=== PATIENT | female | born 1945 | race Caucasian/White ===

== ENCOUNTER 2018-04-09 10:18 | Outpatient (CLI) | payer MEDICARE, SELFPAY ==
[2018-04-09 11:19] LABS: ALT 32 U/L (12-78); AST 34 U/L (15-37); Cholesterol 254 mg/dL (50-200); HDL Cholesterol 51 mg/dL (40-60); LDL CHOLESTEROL 177 mg/dL (<100); Triglyceride 136 mg/dL (30-150)
== END 2018-04-09 10:38 ==
PROVIDERS: PCP Internal Medicine; Visit Provider Internal Medicine
DX: E78.5 Hyperlipidemia, unspecified (principal)
CPT/HCPCS: 36415; 80061; 83721; 84450; 84460

== ENCOUNTER 2018-11-14 07:48 | Outpatient (CLI) | payer MEDICARE, SELFPAY ==
[2018-11-14 10:12] LABS: ALT 23 U/L (12-78); AST 19 U/L (15-37); Albumin 3.5 g/dL (3.4-5.0); Alkaline Phosphatase 56 U/L (46-116); Bilirubin, Total 0.8 mg/dL (0.2-1.0); Cholesterol 164 mg/dL (50-200); HDL Cholesterol 43 mg/dL (40-60); LDL CHOLESTEROL 93 mg/dL (<100); Total Protein 7.3 g/dL (6.4-8.2); Triglyceride 108 mg/dL (30-150)
[2018-11-14 10:24] LABS: Bilirubin, Direct 0.16 mg/dL (0.00-0.20)
== END 2018-11-14 08:08 ==
PROVIDERS: PCP Internal Medicine; Visit Provider Internal Medicine
DX: E78.5 Hyperlipidemia, unspecified (principal)
CPT/HCPCS: 36415; 80061; 80076; 83721

== ENCOUNTER 2018-12-02 01:23 | Outpatient (CLI) | payer MEDICARE, SELFPAY ==
--- NOTE | 2018-12-02 10:59 | DI.MAMMO_ITS ---
SYMPTOM/DIAGNOSIS: SCREENING Z12.39, PREVENTIVE HEALTH Z00.00 MAMMOGRAMS: Mammograms were interpreted according to the usual protocol including computer analysis with CAD system, tomosynthesis and C view imaging. Comparison with prior examinations. Breast density A. No suspicious masses or microcalcifications are seen. There is asymmetric breast tissue in the retroareolar region of the right breast on the medial lateral oblique view which is more prominent compared to the prior examination. Spot compression views requested. Ultrasound may be indicated at that time. There is an asymmetric density in the medial right breast on the cranial caudad view. This should be further evaluated with spot compression viw. IMPRESSION: Additional views of the right breast as described above. Category 0, breast density A. MQSA ASSESSMENT OF FINDINGS: Incomplete: Needs additional imaging evaluation. Category 0. Patient will receive a letter notifying them of these results. BI-RAD category A. The breasts are almost entirely fatty..
== END 2018-12-02 01:43 ==
PROVIDERS: PCP Internal Medicine; Visit Provider Internal Medicine
DX: Z12.31 Encounter for screening mammogram for malignant neoplasm of breast (principal); R92.8 Other abnormal and inconclusive findings on diagnostic imaging of breast
CPT/HCPCS: 77063; 77067

== ENCOUNTER 2018-12-19 01:04 | Outpatient (CLI) | payer MEDICARE, SELFPAY ==
--- NOTE | 2018-12-19 10:49 | DI.MAMMO_ITS ---
SYMPTOM/DIAGNOSIS: F/U ABNL MAMMO, ASYMMETRIC BREAST TISSUE ADDITIONAL MAMMOGRAPHIC VIEWS RIGHT BREAST, RIGHT BREAST ULTRASOUND: 12/19 Additional images are interpreted according to the usual protocol including tomosynthesis and 2D imaging. Additional mammographic views of the right breast and right breast ultrasound are interpreted in conjunction. These examinations were obtained to evaluate a questionable area of asymmetric density/nodularity of the retroareolar portion of the right breast seen on recent mammogram in the MLO view. Additional mammographic views failed to show a discrete mass. Breast ultrasound shows no evidence of a mass or cyst. CONCLUSION: No specific evidence of malignancy at this time. Follow up unilateral right breast mammogram recommended in six months. Category 3, breast density category B. MQSA ASSESSMENT OF FINDINGS: Probably benign. Six month follow-up recommended. Category 3. Patient will receive a letter notifying them of these results. BI-RADS category B. There are scattered areas of fibroglandular density.
== END 2018-12-19 01:24 ==
PROVIDERS: PCP Internal Medicine; Visit Provider Internal Medicine
DX: Z12.31 Encounter for screening mammogram for malignant neoplasm of breast (principal); R92.8 Other abnormal and inconclusive findings on diagnostic imaging of breast; N64.59 Other signs and symptoms in breast
CPT/HCPCS: 76642; 77063; 77067

== ENCOUNTER → 2019-01-17 10:39 | Outpatient (BNVA) | payer MEDICARE, SELFPAY | PROVIDERS: PCP Internal Medicine; Referring Provider Internal Medicine; Visit Provider Physical Therapy Assistant | DX: Z12.11 Encounter for screening for malignant neoplasm of colon (principal); Z86.010 Personal history of colon polyps; I10 Essential (primary) hypertension ==

== ENCOUNTER → 2019-03-27 10:52 | Outpatient (BNVA) | payer MEDICARE, SELFPAY | PROVIDERS: PCP Internal Medicine; Referring Provider Internal Medicine; Visit Provider Physical Therapy Assistant | DX: Z12.11 Encounter for screening for malignant neoplasm of colon (principal); Z86.010 Personal history of colon polyps; I10 Essential (primary) hypertension ==

== ENCOUNTER 2019-04-07 08:09 | Day surgery (SDC) | payer MEDICARE, SELFPAY ==
--- NOTE | 2019-04-07 06:48 | W.COLOREPORT ---
Date of service: 04/07/19 Time of Service: Colonoscopy Report Date of procedure: 04/07/19 Pre-op diagnosis general: Hx of polyps, screening colonoscopy Post-op diagnosis procedure note: same (polyps and diverticulosis) Procedure: Colonoscopy with polypectomy by hot snare and cold forceps Surgeon: Brittany Srinivasan Anesthesia proc note operative: other (General/ ASA 2/Carole groves, [employer]) Estimated blood loss (mL): 5 Pathology: other (Distal ascending/ proximal transverse colon polyps x4) Complications: Other (Bradycardia- patient recieved 2 doses of Robinal and 1 dose of Atropin) Disposition: same day Indications: Mrs. Valente is a pleasant 73 year old female seen in the office for a follow up Colonoscopy. Her last Colonoscopy was in 2013 and she was found to have 2 pre-cancerous polyps. Risks, benefits and complications have been reviewed. Complications include but are not limited to bleeding, pain, perforation, missed small lesion/polyp, sore throat, aspiration and adverse reaction to the medications. Questions were entertained and answered to their satisfaction and they wished to proceed. No guarantees were given or implied. Prep: Miralax/Dulcolax Procedure Start Time: Procedure End Time: 10:20 Retraction Time: 35 minutes Findings: 2 pedunculated polyps in the distal ascending colon and 2 sessile polyps in the proximal Transverse colon Procedure Description: After informed consent was obtained the patient was taken to the procedure room and placed in a left decubitous position. Monitors were applied and a time out was done. The patients name, date of , procedure, allergies to medications and metal in their body was reviewed. The patient was then sedated. Once sedated and comfortable a rectal exam was done. External exam was normal. Internal exam revealed a normal sphincter tone and no palpable masses. The scope was then introduced and retro-flexed. No internal hemorrhoids, polyps or masses were identified on retroflexion. The scope was then advanced to the cecum with some difficulty due to a tortuous colon on the right side. We had to stop a few times due to Bradycardia. 2 doses of Robinal were given followed by 1 dose of Atropin. The TI and appendiceal orifice were identified. The prep was adequate. The scope was then slowly retracted over 35 minutes back into the rectum. Polyps were removed with a hot snare in the distal ascending colon and with a cold forceps in the distal ascending x1 and proximal Transverse colon x 2. There was also mild diverticulosis. The scope was removed and the patient was woken up and taken back to Same day surgery in stable condition. The patient tolerated the procedure well and there were no immediate complications. Follow up: The patient should follow up in 3 years unless they develop changes in bowel habits or other new gastrointestinal complaints.
--- NOTE | 2019-04-07 06:50 | PDOC.DSDIS_ITS ---
Discharge Plan Disposition Patient Disposition: HOME Condition: Good Discharge Details Reason For Visit: Colonoscopy Attending Provider: Brittany Srinivasan Primary Care Provider: Bassam Aguilar Home Meds and New Rx's Prescriptions: Continued simvastatin 10 mg tablet 10 mg PO QHS RF: 0 multivitamin [Daily Multi-Vitamin] 1 EACH tablet 1 tab PO DAILY RF: 0 losartan 50 MG tablet 50 mg PO DAILY RF: 0 aspirin 81 MG tablet,chewable 1 tab PO DAILY RF: 0 hydrochlorothiazide 25 MG tablet 25 mg PO DAILY RF: 0 calcium-vitamin D3-vitamin K 1 EACH tablet,chewable 1 tab PO DAILY RF: 0 Discontinued polyethylene glycol 3350 17 gram/dose powder 238 g PO ONCE Qty: 238 RF: 0 bisacodyl [Dulcolax (bisacodyl)] 5 mg tablet,delayed release (DR/EC) 5 mg PO ONCE Qty: 4 RF: 0 polyethylene glycol 3350 17 gram/dose powder 238 g PO ONCE Qty: 238 RF: 0 bisacodyl [Dulcolax (bisacodyl)] 5 mg tablet,delayed release (DR/EC) 5 mg PO ONCE Qty: 4 RF: 0 Discharge Instructions Instructions: Colonoscopy (DC), Diverticulosis (DC), Colorectal Polyps (DC) Additional Instructions: Findings: 4 polyps Follow up: 3 years Please call if you develop: fevers >101.5 Nausea or Vomiting Abdominal pain that is not transient DAY SURGERY UNIT POST ENDOSCOPY INSTRUCTIONS 1. Because there will be medication in your system for the next 24 hours, you may feel a little sleepy. Your coordination will be affected. Therefore: a. Do not drive or operate dangerous equipment for 24 hours. b. Do not drink alcohol beverages for 24 hours (not even beer). c. Plan to go home and rest for the day. 2. Generally there are no restrictions on your activity after a day or so has gone by, but you may feel a bit fatigued for a few days. 3 After you arrive home you may have a light meal and return to a normal diet as you can tolerate it without feeling sick to your stomach. 4. After surgery, you may feel pain or discomfort. This should be only rivas sient, but if it persists please contact your doctor. 5. If there are any questions regarding the findings of your procedure, please feel free to contact your doctor. 6. If you are unable to contact your doctor with a problem, contact the hospital at [phone]. 4. Continue all your regular medications unless directed otherwise. I understand the above instructions and have no questions. Signature of Patient or Responsible Adult Escort Date/Time Name of Responsible Adult Escort Signature of Nurse Date/Time Activity:: Activity as Tolerated Diet:: High Fiber diet Discharge Orders Discharge Orders: Discharge Order (Routine); Ordered 04/07/19 Ordered By: Brittany Srinivasan DS: Diagnosis Discharge Diagnosis (1) S/P colonoscopy: Status: Acute (2) Diverticulosis: Status: Acute (3) Colorectal polyps: Status: Acute
[2019-04-07 08:25] VITALS: BP 150/87; PULSE 67; RESP 16; TEMP 36.1; O2SAT 98
[2019-04-07 08:32] VITALS: BP 150/87; PULSE 67; RESP 16; TEMP 36.1; O2SAT 98
[2019-04-07] MEDS: Lactated Ringers 1,000 ML 80 ML IV (08:45)
--- NOTE | 2019-04-07 09:50 | BOWEL_PTH ---
PATIENT: Aby Valente LOC: [facility] U#:[id number] AGE/SX: 73/F ROOM: RE04/07/[address]: Brittany Srinivasan MD : [id number] BED: DIS: 04/07/2019 SPEC #: [id number] RECD: 04/07/19 12:45 STATUS: TINY REQ #: [id number] DAILY: 04/07/19 09:[address]: Brittany Srinivasan DEPT: Surgical Specimen RECD BY: Sanjuanita Sylvester ENTERED: 04/07/19 12:45 SP TYPE: Bowel OTHR DR: Bassam Aguilar Tissues: 1 - BIOPSY BOWEL Procedures: GROSS AND MICRO LEVEL 4 Comments: [id number]
[2019-04-07 10:55] VITALS: BP 138/60; PULSE 74; RESP 16; TEMP 36.1; O2SAT 97
--- NOTE | 2019-04-07 15:56 | NUR.NOTE ---
1555: Aby called, states she voided a total of three times since arriving home. First time a small amount that she forced. Second and Third time 1/4 to 1/3 cup, unable to catch all and states she felt like she needed to go. Pt. reports urine is light colored and denies any bladder discomfort or pressure after voiding. Curtis Zaragoza, Lisa Rodriguez and Brayan Robles, CRNAs aware and told nursing to inform pt. that she was okay and she did not need to return to ER at 4:30. Pt. instructed to contact hospital or come to ER for any bladder concerns or other concerns, pt. agreeable.Nursing Note:
== END 2019-04-07 13:20 | disposition home or self-care (01) ==
LOC: SUR 08:09
PROVIDERS: PCP Internal Medicine; Visit Provider Surgery
PROC: 0DJD8ZZ Inspection of Lower Intestinal Tract, Via Natural or Artificial Opening Endoscopic (ICD-10-PCS; CPT 45378; principal; 2019-04-07 09:30)
DX: Z12.11 Encounter for screening for malignant neoplasm of colon (principal); D12.2 Benign neoplasm of ascending colon; K57.30 Diverticulosis of large intestine without perforation or abscess without bleeding; K63.89 Other specified diseases of intestine; Z86.010 Personal history of colon polyps; I97.791 Other intraoperative cardiac functional disturbances during other surgery; R00.1 Bradycardia, unspecified
CPT/HCPCS: 45385; 45380; 88305

== ENCOUNTER 2019-04-21 12:59 | Outpatient (REF) | payer MEDICARE, SELFPAY ==
[2019-04-21 21:45] LABS: Anion Gap 7.5 mmol/L (3-11); BUN 13 mg/dL (7-18); CO2 28.5 mmol/L (21.0-32.0); CREATININE 0.77 mg/dL (0.55-1.02); Calcium 8.8 mg/dL (8.5-10.1); Chloride 105 mmol/L (98-107); Glucose 86 mg/dL (70-100); Sodium 141 mmol/L (136-145)
[2019-04-21 22:02] LABS: Hemoglobin A1C 5.8 % (4.5-6.2)
== END 2019-04-21 13:19 ==
LOC: NCHCN 12:59
PROVIDERS: PCP Internal Medicine; Visit Provider Internal Medicine
DX: I10 Essential (primary) hypertension (principal); R73.03 Prediabetes
CPT/HCPCS: 80048; 83036

== ENCOUNTER 2019-06-19 00:19 | Outpatient (CLI) | payer MEDICARE, SELFPAY ==
--- NOTE | 2019-06-19 10:37 | DI.MAMMO_ITS ---
EXAM: MG MAMMO DIAGNOSTIC UNI CLINICAL HISTORY: RT BREAST 6 MO FU R92.8 TECHNIQUE: Right full field digital CC and MLO mammographic images were obtained with 3D tomosynthes is and utilizing computer aided detection (CAD). COMPARISON: Available for comparison. FINDINGS: Masses/Architectural Distortion: None seen. Microcalcifications: No suspicious pleomorphic-type are seen. Skin Thickening/Nipple Retraction: None. IMPRESSION: 1. No significant interval change with no specific features of malignancy noted. 2. Unless there is more urgent need, screening mammography is recommended, as per [place] [employer] guidelines. ACR BI-RAD Category- 1 Negative Breast Density - Category B - Scattered areas of fibroglandular density A negative radiographic report should not delay biopsy if a dominant or clinically suspicious mass is present. Up to ten percent of cancers are not identified on mammography. A negative report may reinforce clinical impression. Adenosis and dense breasts may obscure an underlying neoplasm. False positive reports average 6 to 10%. Patient will receive a letter notifying them of these results.
== END 2019-06-19 00:39 ==
PROVIDERS: PCP Internal Medicine; Visit Provider Internal Medicine
DX: Z12.31 Encounter for screening mammogram for malignant neoplasm of breast (principal); R92.8 Other abnormal and inconclusive findings on diagnostic imaging of breast; N64.59 Other signs and symptoms in breast
CPT/HCPCS: 77061; 77065; G0279

== ENCOUNTER 2020-01-19 01:24 | Outpatient (CLI) | payer MEDICARE, SELFPAY ==
--- NOTE | 2020-01-19 | DI.MAMMO_ITS ---
EXAM: MAMMO SCREENING CLINICAL HISTORY: SCREENING, Z12.39 TECHNIQUE: Mammograms were interpreted according to the usual protocol including computer analysis w ith CAD system, tomosynthesis and C-view imaging. COMPARISON: 2011 through 2018 FINDINGS: The breasts are composed of scattered fibroglandular densities, Breast Density category B. No suspicious masses or suspicious microcalcifications are seen. No skin thickening or abnormal axillary lymph nodes are seen. There has been no significant change from prior exams. IMPRESSION: BI-RADS Category 1, negative mammogram. Yearly screening mammography is recommended. Breast Density Category B, scattered fibroglandular densities.
== END 2020-01-19 01:44 ==
PROVIDERS: PCP Internal Medicine; Visit Provider Internal Medicine
DX: Z12.31 Encounter for screening mammogram for malignant neoplasm of breast (principal); R92.2 Inconclusive mammogram
CPT/HCPCS: 77063; 77067

== ENCOUNTER 2020-07-13 13:37 | Outpatient (REF) | payer MEDICARE, SELFPAY ==
[2020-07-13 21:18] LABS: Anion Gap 10.3 mmol/L (3-11); BUN 17 mg/dL (7-18); CO2 24.7 mmol/L (21.0-32.0); CREATININE 0.79 mg/dL (0.55-1.02); Calcium 9.1 mg/dL (8.5-10.1); Chloride 103 mmol/L (98-107); Glucose 106 mg/dL (74-106); Potassium 3.5 mmol/L (3.5-5.1); Sodium 138 mmol/L (136-145)
[2020-07-13 21:25] LABS: Hemoglobin A1C 5.8 % (<5.7)
== END 2020-07-13 13:57 ==
LOC: NCHCN 13:37
PROVIDERS: PCP Internal Medicine; Visit Provider Internal Medicine
DX: I10 Essential (primary) hypertension (principal); R73.03 Prediabetes
CPT/HCPCS: 80048; 83036

== ENCOUNTER 2021-01-18 12:53 | Outpatient (REF) | payer MEDICARE, SELFPAY ==
[2021-01-18 21:54] LABS: HCT 37.1 % (36.0-46.0); HGB 12.7 g/dL (11.2-15.7); MCH 30.7 pg (27.0-33.0); MCHC 34.2 % (32.0-36.0); MCV 89.6 fL (80-95); MPV 10.8 fL (8.0-11.0); Platelet Count 261 10^3/uL (130-400); RBC 4.14 10^6/uL (3.93-5.22); RDW 12.9 % (11.7-14.6); RDW-SD 42.3 fL; WBC 5.91 10^3/uL (4.4-10.8)
[2021-01-18 22:44] LABS: ALT 31 U/L (14-59); AST 18 U/L (15-37); Albumin 3.5 g/dL (3.4-5.0); Alkaline Phosphatase 57 U/L (46-116); Anion Gap 10.6 mmol/L (3-11); BUN 16 mg/dL (7-18); Bilirubin, Total 0.6 mg/dL (0.2-1.0); CO2 25.4 mmol/L (21.0-32.0); CREATININE 0.8 mg/dL (0.55-1.02); Calcium 8.6 mg/dL (8.5-10.1); Chloride 105 mmol/L (98-107); Glucose 108 mg/dL (74-106); Potassium 3.3 mmol/L (3.5-5.1); Sodium 141 mmol/L (136-145); TSH 1.86 uIU/mL (0.36-3.74); Vitamin B12 1155 pg/mL (193-986)
== END 2021-01-18 12:54 | disposition home or self-care (01) ==
LOC: NCHCN 12:53
PROVIDERS: PCP Internal Medicine; Visit Provider Internal Medicine
DX: R20.2 Paresthesia of skin (principal)
CPT/HCPCS: 80053; 85027; 82607; 84443

== ENCOUNTER 2021-02-15 03:24 | Outpatient (CLI) | payer MEDICARE, SELFPAY ==
--- NOTE | 2021-02-15 | DI.MAMMO_ITS ---
Exam(s) MAMMO SCREENING EXAM: MAMMO SCREENING CLINICAL HISTORY: SCREENING, Z12.39 TECHNIQUE: Mammograms were interpreted according to the usual protocol including computer analysis w [employer] CAD system, tomosynthesis and C-view imaging. COMPARISON: 2011 through 2019 FINDINGS: The breasts are composed of scattered fibroglandular densities, Breast Density category B. No suspicious masses or suspicious microcalcifications are seen. No skin thickening or abnormal axillary lymph nodes are seen. There has been no significant change from prior exams. IMPRESSION: BI-RADS Category 1, Negative mammogram Yearly screening mammography is recommended. Breast Density - Category B, scattered fibroglandular densities. A negative radiographic report should not delay biopsy if a dominant or clinically suspicious mass is present. Up to ten percent of cancers are not identified on mammography. A negative report may reinforce clinical impression. Adenosis and dense breasts may obscure an underlying neoplasm. False positive reports average 6 to 10%. Patient will receive a letter notifying them of these results.
== END 2021-02-15 03:44 ==
PROVIDERS: PCP Internal Medicine; Visit Provider Internal Medicine
DX: Z12.31 Encounter for screening mammogram for malignant neoplasm of breast (principal)
CPT/HCPCS: 77063; 77067

== ENCOUNTER 2021-02-22 14:56 | Outpatient (REF) | payer MEDICARE, SELFPAY ==
[2021-02-22 15:36] LABS: Potassium 4.1 mmol/L (3.5-5.1)
== END 2021-02-22 14:57 | disposition home or self-care (01) ==
LOC: NCHCN 14:56
PROVIDERS: PCP Internal Medicine; Visit Provider Family Medicine
DX: E87.6 Hypokalemia (principal)
CPT/HCPCS: 84132

== ENCOUNTER 2021-10-04 12:35 | Outpatient (REF) | payer MEDICARE, SELFPAY ==
[2021-10-04 17:27] LABS: Anion Gap 10.6 mmol/L (3-11); BUN 20 mg/dL (7-18); CO2 25.4 mmol/L (21.0-32.0); CREATININE 0.9 mg/dL (0.55-1.02); Calcium 8.2 mg/dL (8.5-10.1); Chloride 105 mmol/L (98-107); Glucose 126 mg/dL (74-106); Potassium 4.2 mmol/L (3.5-5.1); Sodium 141 mmol/L (136-145)
== END 2021-10-04 12:36 | disposition home or self-care (01) ==
LOC: NCHCN 12:35
PROVIDERS: PCP Internal Medicine; Visit Provider Family Medicine
DX: I10 Essential (primary) hypertension (principal)
CPT/HCPCS: 80048

== ENCOUNTER → 2022-02-21 01:45 | Outpatient (CLI) | payer MEDICARE, SELFPAY ==
--- NOTE | 2022-02-21 11:45 | DI.MAMMO_ITS ---
Exam(s) MAMMO SCREENING EXAM: MAMMO SCREENING CLINICAL HISTORY: SCREENING, Z12.39 TECHNIQUE: Mammograms were interpreted according to the usual protocol including computer analysis w [employer] CAD system, tomosynthesis and C-view imaging. COMPARISON: FINDINGS: The breasts are of moderate density with fairly symmetrical distribution of fibroglandular tissue. N o dominant mass or clumped microcalcification is identified in either breast. The current examinatio n is compared with previous examinations including January 2021 and there has been no gross interval c hange in appearance in comparison with the prior studies. IMPRESSION: No specific evidence of malignancy at this time. Routine screening examinations are suggested at yea rly intervals in this age group according to the ACS ACR guidelines. BI-RADS Category 1 - Negative Breast Density - Category B - Scattered areas of fibroglandular density
== END ==
PROVIDERS: PCP Family Medicine; Visit Provider Family Medicine
DX: Z12.31 Encounter for screening mammogram for malignant neoplasm of breast (principal)
CPT/HCPCS: 77063; 77067

== ENCOUNTER 2022-10-03 13:44 | Outpatient (REF) | payer MEDICARE, SELFPAY ==
[2022-10-03 15:13] LABS: Anion Gap 10.9 mmol/L (3-11); BUN 30 mg/dL (7-18); CO2 26.1 mmol/L (21.0-32.0); CREATININE 1.2 mg/dL (0.55-1.02); Calcium 9.2 mg/dL (8.5-10.1); Calculated LDL 116 mg/dL (<100); Chloride 104 mmol/L (98-107); Cholesterol 185 mg/dL (<200); Estimated GFR 47.21 (mL/min/1.73m2); Glucose 103 mg/dL (74-106); HDL Cholesterol 48 mg/dL (40-60); Potassium 4.4 mmol/L (3.5-5.1); Sodium 141 mmol/L (136-145); Triglyceride 109 mg/dL (<150)
== END 2022-10-03 13:45 | disposition home or self-care (01) ==
LOC: NCHCN 13:44
PROVIDERS: PCP Family Medicine; Visit Provider Family Medicine
DX: I10 Essential (primary) hypertension (principal); E78.5 Hyperlipidemia, unspecified
CPT/HCPCS: 80048; 80061

== ENCOUNTER → 2022-11-29 10:48 | Outpatient (BNVA) | payer MEDICARE, SELFPAY | PROVIDERS: PCP Family Medicine; Referring Provider Internal Medicine; Visit Provider Surgery | DX: Z12.11 Encounter for screening for malignant neoplasm of colon (principal) ==

== ENCOUNTER 2023-06-09 08:42 | Emergency (ER) | payer MEDICARE, SELFPAY ==
[2023-06-09] VITALS (7 sets, daily range): BP systolic 124–164; BP diastolic 63–64; PULSE 63–92; RESP 11–22; TEMP 37; O2SAT 97–99
[2023-06-09] MEDS: Normal Saline 1,000 ML 1000 ML IV (09:10)
--- NOTE | 2023-06-09 09:16 | ED.GENADUL_ITS ---
Discharge Plan Disposition Patient Disposition: Home Discharge Details Clinical Impression: Colitis, Abnormal finding on CT scan Primary Care Provider: Wesley Ward ED Provider: Tyrell Ding Home Meds and New Rx's Prescriptions: New azithromycin 500 mg tablet 500 mg PO DAILY 4 Days Qty: 4 0RF Continued losartan 100 mg tablet 100 mg PO DAILY simvastatin 10 mg tablet 10 mg PO QHS triamterene-hydrochlorothiazid 37.5-25 mg capsule 1 cap PO DAILY multivitamin [Daily Multi-Vitamin] 1 EACH tablet 1 tab PO DAILY Discharge Instructions Instructions: Colitis (ED) Additional Instructions: Please continue to monitor symptoms and return immediately for any new or significant worsening of your condition which includes fever, worsening bloody diarrhea, lightheadedness, severe abdominal pain. Otherwise take antibiotics starting tomorrow and follow-up with your primary care provider for recheck of your symptoms next week. Due to discussed abnormal CT finding we have placed a referral into [facility] for you to follow-up with gynecology for discussion of further investigation versus repeat scans or imaging. Referrals: [facility] [Provider Group] - 1 week Wesley Ward MD [Primary Care Provider] - 3 days Discharge Data Discharge Date/Time-TO BE ENTERED AT DEPARTURE: 06/09/23 12:13 Medical Decision Making Patient presenting to the emergency department for chief complaint of gross red blood in stool. Patient reports that yesterday while just sitting and resting she had onset of crampy abdominal pain that then proceeded to loose stool and significant amount of blood. Patient denies any other symptoms including nausea or vomiting, chest pain shortness of breath lightheadedness. She does report years ago she had a similar episode that resolved after 1 single bowel movement but with this current episode she has had multiple bowel movements with blood in them. She does state that the last 2 have had significantly less blood and that symptoms seem to be resolving but was concerned due to the frequency. Patient denies any other significant past medical history. Does state though colonoscopy showed some small adenomas but has not had a colonoscopy since 2019. Physical exam shows soft nontender abdomen, well-appearing patient with no obvious physical exam findings. Rectal exam was performed and no significant amount of stool was noted in the rectum and Hemoccult testing was negative but again very small sample was able to be retrieved. Given patient's age and history of abnormal colonoscopy will plan on performing labs and CT imaging with consideration of possible bleeding diverticulitis, colitis, bleeding colonic polyp. Patient denies any current pain or discomfort so we will give a fluid bolus pending results. Reviewed patient's labs and no signs of anemia but there is a marked leukocytosis with WBC of 15.2, elevated neutrophils and monocytes. CMP does show a hypokalemia, elevated anion gap BUN and creatinine and slightly elevated total bilirubin. Magnesium is low at 1.6 labs otherwise nondiagnostic. Will replete the potassium and magnesium orally and will perform CT imaging. CT findings show evidence of colitis which does fit patient's picture of intestinal cramping, diarrhea, and blood. There were incidental findings of filling defects noted for the ovarian veins bilateral. Did discuss this with the bindery machine setter on-call Dr. Calvin who recommended follow-up on outpatient basis but no emergent interventions needed. Due to the colitis and elevated white count we will treat patient with azithromycin. Urinalysis initially was contaminated per medical staff manager so repeat was done that showed no leukocytosis but did show some blood present. Culture was reflexively ordered but patient denies any urinary symptoms so we will hold off on treating as I do not suspect UTI. I do feel that patient is safely able to be discharged due to stable vital signs, and overall benign exam. Of note patient does state that she had additional bowel movement in the emergency department and did not see any further blood. After discussion of diagnosis and plan of care patient has no further needs, questions, or concerns and states clear understanding to return to the emergency department for any worsening symptoms. This documentation was generated using [employer] dictation system, please disregard any oddities of phrase or misspellings. Imaging Data Radiologic Study: Imaging: CT Scan Radiologist's impression: Exam(s) Addendum created by Priya Carson MD on 06/09/2023 11:27:03 AM EST: THIS REPORT CONTAINS FINDINGS THAT MAY BE CRITICAL TO PATIENT CARE. The findings were verbally communicated via telephone conference with TYRELL DING at 11:26 AM EST on 06/09/2023. The findings were acknowledged and understood. Initial report created on 06/09/2023 11:23:37 AM EST: PROCEDURE INFORMATION: Exam: CTA Abdomen and Pelvis With Contrast Exam date and time: 06/09/2023 10:25 AM Age: 77 years old Clinical indication: Other: Bleeding; Patient HX: Abd pain, gi bleed TECHNIQUE: Imaging protocol: Computed tomographic angiography of the abdomen and pelvis with contrast. Exam focused on the arteries. COMPARISON: No relevant prior studies available. FINDINGS: Lungs: Bibasilar atelectasis Diaphragm: Small hiatal hernia Aorta: No aortic aneurysm. No aortic dissection. Celiac trunk and mesenteric arteries: See Veins finding. Renal arteries: See Veins finding. Right iliac arteries: No occlusion or significant stenosis. Left iliac arteries: No occlusion or significant stenosis. Veins: Filling defect in the right ovarian vein. 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 Filling defect in the left ovarian vein. Series 13, image 32 consistent with left ovarian vein thrombosis. Portal vein is patent. Splenic vein is patent. Celiac artery and SMA arteries are patent. Renal arteries are patent Liver: No mass. Gallbladder and bile ducts: Unremarkable. No calcified stones. No ductal dilation. Pancreas: Unremarkable. No mass. No ductal dilation. Spleen: Unremarkable. No splenomegaly. Adrenal glands: Unremarkable. No mass. Kidneys and ureters: There is no evidence of renal or ureteral calcifications. Stomach and bowel: Bowel wall thickening in the descending colon and rectosigmoid For example series 5, image 58 . Inflammatory changes are seen in the left paracolic gutter on image 39. Findings consistent with colitis.. Appendix: Normal appendix. Intraperitoneal space: No free air. . No fluid collection Lymph nodes: Unremarkable. No enlarged lymph nodes. Urinary bladder: Unremarkable. No mass. Reproductive: Surgical resection of the uterus Bones/joints: No acute fracture. Soft tissues: Unremarkable. Other findings: No evidence of gastrointestinal hemorrhage. IMPRESSION: 1. Bowel wall thickening in the descending colon and rectosigmoid For example series 5, image 58 . Inflammatory changes are seen in the left paracolic gutter on image 39. Findings consistent with colitis.. 2. No evidence of gastrointestinal hemorrhage. 3. Filling defect in the right ovarian vein. 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 4. Filling defect in the left ovarian vein. Series 13, image 32 consistent with left ovarian vein thrombosis. 5. Normal appendix. Dictated and Authenticated by: Priya Carson MD. Lab Data Lab results reviewed: Yes I reviewed the patient's lab results. HPI General Mode of arrival: ambulatory . Date/Time Provider Initiated Documentation: 06/09/23 08:48 . Limitations to Documentation: no limitations . Information obtained by: patient and RN notes reviewed . History of Present Illness 77 year old F presents to the emergency department with the chief complaint of Blood in stool, described as moderate, Patient started experiencing this day(s) (1) and it has been constant and other (Improving). No relieving factors improve symptom(s), No exacerbating factors reported . Patient notes no other symptoms.. Patient did receive the following treatments prior to arrival, none Related Data Home Medications Medication Instructions Recorded Confirmed multivitamin (Daily Multi-Vitamin 1 tab PO DAILY 02/20/14 06/09/23 tablet) simvastatin 10 mg tablet 10 mg PO QHS 12/19/18 06/09/23 triamterene 37.5 1 cap PO DAILY 05/08/22 06/09/23 mg-hydrochlorothiazide 25 mg capsule losartan 100 mg tablet 100 mg PO DAILY 11/29/22 06/09/23 azithromycin 500 mg tablet 500 mg PO DAILY 4 days #4 tabs 06/09/23 Previous Rx's Medication Instructions Recorded azithromycin 500 mg tablet 500 mg PO DAILY 4 days #4 tabs 06/09/23 Allergies Allergy/AdvReac Type Severity Reaction Status Date / Time lisinopril AdvReac Mild cough Verified 06/09/23 09:24 General Stated Complaint: GI Bleed MIKE: 3 Review of Systems Constitutional Constitutional: Denies chills and Denies fever(s) ENT Ears, Nose, Mouth, and Throat: Denies dizziness Cardiovascular Cardiovascular: Denies chest pain, Denies rapid heart rate, Denies dyspnea and Denies dyspnea on exertion Respiratory Respiratory: Denies dyspnea and Denies dyspnea on exertion Gastrointestinal Gastrointestinal: Reports as per HPI, Reports abdominal pain, Denies bloating, Reports hematochezia, Denies constipation, Reports cramping, Denies nausea, Denies vomiting and Denies hematemesis Genitourinary Genitourinary: Denies abnormal vaginal bleeding and Denies hematuria Neurologic Neurologic: Denies dizziness PFSH All Active Problems (Updated 06/09/23 @ 11:59 by Tyrell Ding NP) Abnormal finding on CT scan (Acute) Colitis (Acute) Prediabetes (Acute) Screening for colon cancer (Acute) Colorectal polyps (Acute) Diverticulosis (Acute) Medical History Adenomatous colon polyp 02/20/14 Dr Peralta, tubular adenoma HTN (hypertension) Hyperlipidemia HTN (hypertension) Surgical History S/P colonoscopy 04/12 - Tubular adenoma 2013- polyps History of cataract surgery Hx of hysterectomy Family History Other Heart disease Social History Smoking/Tobacco Use Status: Never Smoking risk assessment performed?: Yes Alcohol Intake: never Drug use: Never Substance use type: does not use Details: Pt. uses hemp/CBD cream on R hip Housing: house Current gender identity: female Do you feel safe at home: Yes Do you feel safe in your relationship?: Yes Exam Const General: cooperative Orientation: alert, awake and oriented x3 Resp Effort & Inspection: normal respiratory effort and able to speak in complete sentences Auscultation: clear to auscultation bilaterally Cardio Rate: regular rate Rhythm: regular rhythm Heart Sounds: S1 normal and S2 normal GI Palpation: soft, not firm, no guarding, no masses, no pulsatile masses, not rigid and nontender Auscultation: normal bowel sounds Rectal Exam - female: visual inspection normal, heme negative stool, No hemorrhoids, No laceration, No lesions, No mass and No tenderness Neuro General: patient alert, patient awake, patient oriented x3, gait normal and moves all extremities Course Vital Signs Vital signs: Vital Signs Temperature 37.0 C 06/09/23 08:53 Pulse 92 H 06/09/23 08:53 Respiratory Rate 16 06/09/23 08:53 Blood Pressure 124/64 06/09/23 08:53 Pulse Oximetry 98 06/09/23 08:53 Temperature 37.0 C 06/09/23 08:53 Pulse 92 H 06/09/23 08:53 Respiratory Rate 16 06/09/23 08:53 Blood Pressure 124/64 06/09/23 08:53 Pulse Oximetry 98 06/09/23 08:53
[2023-06-09 09:36] LABS: Abs Immature Grans 0.06 10^3/uL (0.0-0.06); Absolute Basophil Count 0.03 10^3/uL (0.0-0.2); Basophils % 0.2; Eosinophils % 0.1; HCT 39.1 % (36.0-46.0); HGB 13.8 g/dL (11.2-15.7); Immature Grans % 0.4; Lymphocytes % 10.5; MCH 30.8 pg (27.0-33.0); MCHC 35.3 % (32.0-36.0); MCV 87 fL (80-95); MPV 10.2 fL (8.0-11.0); Monocytes % 6.6; Neutrophils % 82.2; Platelet Count 267 10^3/uL (130-400); RBC 4.48 10^6/uL (3.93-5.22); RDW 12.8 % (11.7-14.6); RDW-SD 41.1 fL
[2023-06-09 09:46] LABS: Absolute Eosinophil Count 0.02 10^3/uL (0.0-0.7); Absolute Neutrophil Count 12.49 10^3/uL (1.2-6.7)
[2023-06-09 09:52] LABS: ALT 21 U/L (14-59); AST 20 U/L (15-37); Albumin 3.6 g/dL (3.4-5.0); Alkaline Phosphatase 74 U/L (46-116); Anion Gap 12.7 mmol/L (3-11); BUN 19 mg/dL (7-18); Bilirubin, Total 1.2 mg/dL (0.2-1.0); CO2 23.3 mmol/L (21.0-32.0); CREATININE 1.2 mg/dL (0.55-1.02); Calcium 8.9 mg/dL (8.5-10.1); Chloride 101 mmol/L (98-107); Estimated GFR 47.21 (mL/min/1.73m2); Glucose 153 mg/dL (74-106); Magnesium 1.6 mg/dL (1.8-2.4); Sodium 137 mmol/L (136-145); Total Protein 8.2 g/dL (6.4-8.2)
--- NOTE | 2023-06-09 10:00 | DI.CT_ITS ---
Exam(s) CT ABDOMEN PELVIS W EXAM: CT ABDOMEN PELVIS W CLINICAL HISTORY: abd pain gi bleed TECHNIQUE: Imaging Protocol: Axial computed tomography images with coronal and sagittal reformatted images were created and reviewed CONTRAST MATERIAL: Intravenous: Omnipaque 350 Contrast volume:83 mL Oral: No COMPARISON: No exams were available for comparison FINDINGS: The arterial images extend to the level of the common iliac arteries. ABDOMEN: Lung Bases: There is scarring/atelectasis in the lung bases. There is a small hiatal hernia. Liver: Normal density. No measurable mass. Portal, Superior Mesenteric, and Splenic Veins: Unremarkable. There are filling defects seen in the r ight left ovarian veins consistent with thrombosis. Gallbladder and Biliary Tract: No radiodense calculus or dilation. Pancreas: Normal density, no abnormal calcifications or inflammatory process. Spleen: Normal. Adrenals: No masses seen. Kidneys: Normal size, contour and axis. No radiodense stones or obstructive uropathy. No masses seen. Abdominal Aorta: Abdominal portion non-dilated. Atherosclerosis. The celiac axis, superior mesenteri c artery, renal arteries, inferior mesenteric arteries are patent. Bowel: There is diverticulosis of the colon. There is diffuse bowel wall thickening extending from t he distal transverse colon into the proximal sigmoid colon. Mild pericolonic soft tissue stranding i s present. There is no evidence of bowel obstruction. Normal appendix is present. There is high de nsity material seen in the stomach on the noncontrast examination which does not appear to change on the arterial or venous phases. Peritoneal Cavity: No ascites, collection or mesenteric inflammatory response. No free air. Lymph Nodes: Within normal limits. Bones: Within normal limits for the patient's age. Soft Tissues: Unremarkable. PELVIS: Bladder: Symmetric distention, no gross wall thickening. Reproductive Organs: Status post hysterectomy. Lymph Nodes: Within normal limits. Bones: Within normal limits for the patient's age. IMPRESSION: 1. Bowel wall thickening from the distal transverse colon to the mid sigmoid colon with associated pe ricolonic inflammatory changes consistent with colitis. 2. No definite evidence of gastrointestinal hemorrhage. 3. 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 4. Atherosclerosis of the abdominal aorta but no evidence of aneurysm or dissection. Unremarkable ce liac arteries, superior mesenteric, renal and inferior mesenteric arteries. No evidence of significa nt stenosis or occlusion. 5. Diverticulosis of the distal sigmoid colon. RADIATION DOSE DELIVERED: Total DLP DATA REPOSITORY: All CT scans at this facility are submitted to the National Radiology Data Registry (NRDR) Dose Index Registry (DIR) with the [employer] (ACR). RADIATION OPTIMIZATION: All CT scans at this facility use at least one of these dose optimization te chniques: automated exposure control; mA and/or kV adjustment per patient size (includes targeted exa ms where dose is matched to clinical indication); or iterative reconstruction.
[2023-06-09] MEDS: Magnesium Oxide 400 MG TAB PO (10:25)
[2023-06-09] MEDS: Potassium Chloride 20 MEQ TABCR 40 MEQ PO (10:25)
[2023-06-09] MEDS: Omnipaque 350 MG/ML 100 ML BTL IJ (10:33)
[2023-06-09 10:34] LABS: Bilirubin Negative (Negative); Blood Large (Negative); Clarity Cloudy (Clear); Glucose Negative (Negative); Ketones Negative (Negative); Leukocyte Esterase Small (Negative); Nitrite Negative (Negative); Urobilinogen 0.2 mg/dL (Up to 0.2)
[2023-06-09] MEDS: Normal Saline - Diluent 50 ML VIAL IJ (10:34)
[2023-06-09 10:42] LABS: Epithelial Cells Few HPF (Negative); RBC 20-50 HPF (0-2)
[2023-06-09 10:43] LABS: Bacteria Few HPF (Negative); C & S Indicated? Yes; Casts Negative LPF (Negative); Crystals Negative HPF (Negative); Mucus Trace (Negative)
[2023-06-09 10:52] LABS: Bilirubin Negative (Negative); Blood Trace-intact (Negative); Clarity Clear (Clear); Glucose Negative (Negative); Ketones Negative (Negative); Leukocyte Esterase Trace (Negative); Nitrite Negative (Negative); Specific Gravity 1.015 (1.005-1.025); Urobilinogen 0.2 mg/dL (Up to 0.2)
[2023-06-09 11:05] LABS: Bacteria Rare HPF (Negative); Epithelial Cells Rare HPF (Negative)
[2023-06-09 11:06] LABS: C & S Indicated? Yes; Casts Negative LPF (Negative); Crystals Negative HPF (Negative); Mucus Trace (Negative); Other Cells Rare Transitional (Negative)
--- NOTE | 2023-06-09 11:24 | DI.VRAD_ITS ---
Addendum created by Priya Carson MD on 06/09/2023 11:27:03 AM EST: THIS REPORT CONTAINS FINDINGS THAT MAY BE CRITICAL TO PATIENT CARE. The findings were verbally communicated via telephone conference with MITUL BOGGS at 11:26 AM EST on 06/09/2023. The findings were acknowledged and understood. Initial report created on 06/09/2023 11:23:37 AM EST: PROCEDURE INFORMATION: Exam: CTA Abdomen and Pelvis With Contrast Exam date and time: 06/09/2023 10:25 AM Age: 77 years old Clinical indication: Other: Bleeding; Patient HX: Abd pain, gi bleed TECHNIQUE: Imaging protocol: Computed tomographic angiography of the abdomen and pelvis with contrast. Exam focused on the arteries. COMPARISON: No relevant prior studies available. FINDINGS: Lungs: Bibasilar atelectasis Diaphragm: Small hiatal hernia Aorta: No aortic aneurysm. No aortic dissection. Celiac trunk and mesenteric arteries: See Veins finding. Renal arteries: See Veins finding. Right iliac arteries: No occlusion or significant stenosis. Left iliac arteries: No occlusion or significant stenosis. Veins: Filling defect in the right ovarian vein. 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 Filling defect in the left ovarian vein. Series 13, image 32 consistent with left ovarian vein thrombosis. Portal vein is patent. Splenic vein is patent. Celiac artery and SMA arteries are patent. Renal arteries are patent Liver: No mass. Gallbladder and bile ducts: Unremarkable. No calcified stones. No ductal dilation. Pancreas: Unremarkable. No mass. No ductal dilation. Spleen: Unremarkable. No splenomegaly. Adrenal glands: Unremarkable. No mass. Kidneys and ureters: There is no evidence of renal or ureteral calcifications. Stomach and bowel: Bowel wall thickening in the descending colon and rectosigmoid For example series 5, image 58 . Inflammatory changes are seen in the left paracolic gutter on image 39. Findings consistent with colitis.. Appendix: Normal appendix. Intraperitoneal space: No free air. . No fluid collection Lymph nodes: Unremarkable. No enlarged lymph nodes. Urinary bladder: Unremarkable. No mass. Reproductive: Surgical resection of the uterus Bones/joints: No acute fracture. Soft tissues: Unremarkable. Other findings: No evidence of gastrointestinal hemorrhage. IMPRESSION: 1. Bowel wall thickening in the descending colon and rectosigmoid For example series 5, image 58 . Inflammatory changes are seen in the left paracolic gutter on image 39. Findings consistent with colitis.. 2. No evidence of gastrointestinal hemorrhage. 3. Filling defect in the right ovarian vein. 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 4. Filling defect in the left ovarian vein. Series 13, image 32 consistent with left ovarian vein thrombosis. 5. Normal appendix. Dictated and Authenticated by: Priya Carson MD. Ordering:ADI Santillan MD
[2023-06-09] MEDS: Azithromycin 250 MG TAB 500 MG PO (11:53)
--- NOTE | 2023-06-09 12:03 | NUR.NOTE ---
Referral Faxed to Primary Care for a repeat Check for her Colitis with a GI bleed, early next week. [facility] Abnormal CT Scan- ovarian vein defect, early next week.
--- NOTE | 2023-06-11 18:25 | NUR.NOTE ---
Accessed chart to determine antibiotic on discharge for culture result. Nursing Note:
--- NOTE | 2023-06-14 08:09 | W.EDPROG ---
Date of service: 06/14/23 Time of Service: 08:09 Medical Decision Making Patient had a urine culture result on my shift showing gram-positive mixed femi at 10-50,000 colony-forming units per mL. She was discharged on azithromycin 500 mg daily x 4 in the setting of cramping lower abdominal pain and bright red blood per rectum. Will continue to proceed with empiric trial of expectant outpatient management given urine culture not consistent with UTI. Discharge Plan Disposition Patient Disposition: Home Discharge Details Clinical Impression: Colitis, Abnormal finding on CT scan Primary Care Provider: Wesley Ward ED Provider: Tyrell Ding Home Meds and New Rx's Prescriptions: Continued losartan 100 mg tablet 100 mg PO DAILY simvastatin 10 mg tablet 10 mg PO QHS triamterene-hydrochlorothiazid 37.5-25 mg capsule 1 cap PO DAILY multivitamin [Daily Multi-Vitamin] 1 EACH tablet 1 tab PO DAILY Discharge Instructions Instructions: Colitis (ED) Additional Instructions: Please continue to monitor symptoms and return immediately for any new or significant worsening of your condition which includes fever, worsening bloody diarrhea, lightheadedness, severe abdominal pain. Otherwise take antibiotics starting tomorrow and follow-up with your primary care provider for recheck of your symptoms next week. Due to discussed abnormal CT finding we have placed a referral into [facility] for you to follow-up with gynecology for discussion of further investigation versus repeat scans or imaging. Referrals: [facility] [Provider Group] - 1 week Wesley Ward MD [Primary Care Provider] - 3 days Discharge Data Discharge Date/Time-TO BE ENTERED AT DEPARTURE: 06/09/23 12:13
== END 2023-06-09 12:13 | disposition home or self-care (01) ==
PROVIDERS: Emergency Provider Nurse Practitioner Family; PCP Family Medicine
DX: K52.9 Noninfective gastroenteritis and colitis, unspecified (principal); E87.6 Hypokalemia; I10 Essential (primary) hypertension; E78.5 Hyperlipidemia, unspecified
CPT/HCPCS: 123; 80053; 86850; 86900; 86901; 96360; 99285; 00123; 74177; 81003; 81015; 83735; 85025; 87086; 99284; J3490

== ENCOUNTER → 2023-06-27 11:05 | Outpatient (BNVA) | payer MEDICARE, SELFPAY | PROVIDERS: PCP Family Medicine; Referring Provider Family Medicine; Visit Provider Surgery | DX: Z12.11 Encounter for screening for malignant neoplasm of colon (principal) ==

== ENCOUNTER 2023-07-09 06:46 | Day surgery (SDC) | payer MEDICARE, SELFPAY ==
--- NOTE | 2023-07-08 07:26 | PDOC.DSDIS_ITS ---
Date of service: 07/09/23 Time of Service: 09:02 Discharge Plan Disposition Patient Disposition: Home Condition: Good Discharge Details Reason For Visit: Colonoscopy Attending Provider: Martin Wylie Primary Care Provider: Wesley Ward Home Meds and New Rx's Prescriptions: Continued losartan 100 mg tablet 100 mg PO DAILY simvastatin 10 mg tablet 10 mg PO QHS triamterene-hydrochlorothiazid 37.5-25 mg capsule 1 cap PO DAILY multivitamin [Daily Multi-Vitamin] 1 EACH tablet 1 tab PO DAILY Discontinued polyethylene glycol 3350 17 gram/dose powder 238 g PO ONCE Qty: 238 0RF Rx Instructions: take per colonoscopy instructions Discharge Instructions Instructions: Diverticulosis (GEN), Colorectal Polyps (GEN), Diverticulosis Diet (GEN) Additional Instructions: Aby, we were able to complete your colonoscopy today without any difficulty. There are signs of inflammation towards the bottom part of your l arge intestine. To the naked eye, they seem most consistent with a problem called ulcerative colitis. I did perform some biopsies of this area to see if that can help support or refute the diagnosis. It is limited to a relatively short segment. Incidentally, you also have some diverticulosis. These are weak spots in the colon wall that typically accumulate as we get older. These could also be a cause of the inflammation, but given the distribution of the inflammation, I am a little more skeptical of that. I also found 3 polyps, which I was able to remove without any difficulty. This certainly would not explain any of your symptoms, but since they are risk factors for colon cancer over the course of your life, removing them is the safest course of action for now. I have taken the liberty of setting up a follow-up appointment with you on July 25. I should have the biopsy results at that point, we can discuss long-term management of your colitis in more detail at that time. 1. If tolerated, consume a soft, low fiber diet for 1-2 days. [address] not drive, drink alcohol, operate machinery, make critical decisions, or do activities that require coordination or balance for 24 hours. 3. Because air was put into your colon during the procedure, expelling air from your rectum (passing gas or farting) is normal. 4. You may not have a bowel movement for 1-3 days because of the colonoscopy prep. This is normal. 5. Go directly to the emergency room if you notice any of the following: Develop chills (warm to touch), or if you have a thermometer and your temperature is above 101 Difficulty breathing or difficultly swallowing Persistent vomiting Severe abdominal pain, other than gas cramps Severe chest pain Black, tarry stools Any bleeding ? exceeding one tablespoon 6. Call your physician if the site where your intravenous was started becomes red, swollen, painful, and warm to touch. 7. Your physician has reviewed your pre-procedure medications. Please continue to take those medications as previously ordered. You will be given specific information/education regarding any changes to your medications before leaving. Referrals: Martin Wylie MD [ [facility] STAFF PHYSICIAN] - (July 25 at 2:30 PM) Activity:: Activity as Tolerated Diet:: As Tolerated Discharge Orders Discharge Orders: Discharge Order (Routine); Ordered 07/08/23 Ordered By: Maritn Wylie DS: Diagnosis Discharge Diagnosis (1) Colitis: Status: Acute Asessment and Plan: Follow-up on biopsy results
--- NOTE | 2023-07-08 07:29 | COLE_ITS ---
Date of service: 07/09/23 Time of Service: 09:07 Colonoscopy Report Date of procedure: 07/09/23 Pre-op diagnosis general: Colitis Post-op diagnosis procedure note: other (Diverticulosis, rectosigmoid colitis, colorectal polyps) Procedure: Colonoscopy Surgeon: Martin Wylie Anesthesia Type: General:No Airway Estimated blood loss (mL): 15 Pathology: other (0.25 cm rectal polyps x 2, 0.25 cm cecal polyp, 0.75 cm polyp at 60 cm, biopsies of rectosigmoid inflammation) Complications: None Disposition: same day Indications: Aby is a 77 year old woman with a diagnosis of clitis of unclear etiology. She is undergoing diagnostic colonoscopy Prep: Miralax/Dulcolax Procedure Start Time: 08:23 Procedure End Time: 08:45 Retraction Time: 12 Findings: Rectosigmoid inflammation extending from about 6 cm beyond the anus to about 20 cm; 0.25 cm rectal polyps x 2, 0.75 cm pedunculated polyp at 60 cm, 0.25 cm cecal polyp Procedure Description: After the induction of monitored anesthetic care, and with the patient in left lateral decubitus position, I began by performing an external anorectal exam.? There are some external hemorrhoids.? Next, I performed a digital rectal exam.? This felt normal.? Next, I advanced a colonoscope into the rectal vault.? I performed retroflexion.? There was some inflammation at the bottom portion of the rectal vault.? Using insufflation, I then advanced the colonoscope beyond the rectal folds and into the sigmoid colon before advancing towards the cecum.? Around 6 cm from the anal verge, I encountered 2 polyps. Both were flat, and immediately adjacent to 1 another. There were each less than 0.25 cm. These were removed with cold forceps without any issue. In the same area, there was some patchy erythema and friable mucosa. There were some ulcerative features of it. The area is extended from about 6 cm past the anal verge up to about 20 cm. The upper portion was also adjacent to some sigmoid diverticulosis. I continued to advance the colonoscope over to the right side. The scope was noted to be in the cecum by identification of the ileocecal valve and appendiceal orifice.? I then began withdrawing the colonoscope using repeated irrigation as necessary for full evaluation of the colonic mucosa. Within the lower portion of the cecum, was a 0.25 cm flat polyp. This was removed with cold forceps without any issues. The cecal, ascending, transverse, and proximal descending colon mucosa all appeared normal. There were no signs of inflammation or ulceration here. I did encounter a 0.75 cm pedunculated polyp around 60 cm from the anal verge. This was removed with cold snare polypectomy without significant bleeding. Again, around 20 cm from the anal verge I examined the areas of inflammation I mentioned previously. I did perform some cold biopsy forceps of these areas without any worrisome bleeding. Once the scope was withdrawn to the level of the rectum, great care was taken to examine portions of the rectal folds.? Finally, the scope was withdrawn and the patient was brought to the same-day surgery recovery unit as the anesthetic wore off. ?The findings and instructions were shared with the patient prior to discharge. [place] Bowel Prep [place] Bowel Prep Right Colon: 3 Left Colon: 3 Transverse Colon: 3 Total Score: 9
[2023-07-09 07:18] VITALS: BP 133/82; PULSE 60; RESP 16; TEMP 36.3; O2SAT 98
[2023-07-09] MEDS: Lactated Ringers 1,000 ML 80 ML IV (07:22)
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
--- NOTE | 2023-07-09 08:24 | BOWEL_PTH ---
PATIENT: Aby Valente LOC: [facility] U#:[id number] AGE/SX: 77/F ROOM: RE07/09/[address]: Martin Wylie MD : 1945 BED: DIS: 07/09/2023 SPEC #: [id number] RECD: 07/09/23 13:04 STATUS: [facility] #: [id number] DAILY: 07/09/23 08:[address]: Martin Wylie DEPT: Surgical Specimen RECD BY: Sanjuanita Sylvester ENTERED: 07/09/23 13:06 SP TYPE: Bowel OTHR DR: Wesley Ward Tissues: 1 - BIOPSY BOWEL 2 - BIOPSY BOWEL 3 - BIOPSY BOWEL 4 - BIOPSY BOWEL Procedures: GROSS AND MICRO LEVEL 4 Comments: [id number]
--- NOTE | 2023-07-09 08:34 | W.ANESPOSTOP ---
Postoperative Evaluation Vital Signs Most Recent Imported Vital Signs: Most Recent Vital Signs Temp Pulse Resp BP Pulse Ox 36.3 C L 60 16 133/82 98 07/09/23 07:18 07/09/23 07:18 07/09/23 07:18 07/09/23 07:18 07/09/23 07:18 Pain Score Most Recent Pain Score: Most Recent Pain Score Pain Level 0 07/09/23 07:18
[2023-07-09 08:39] VITALS: BMI 22.5
[2023-07-09 08:50] VITALS: BP 93/62; PULSE 54; RESP 16; TEMP 36.5; O2SAT 99
[2023-07-09 09:37] VITALS: BP 133/65; PULSE 54; RESP 16; TEMP 36.5; O2SAT 99
--- NOTE | 2023-07-09 09:41 | W.ANESPOSTOP ---
Postoperative Evaluation Date, Time and Location Date Performed: 07/09/23 Time Performed: 08:50 Patient Location: Day Surgery Unit Vital Signs Most Recent Imported Vital Signs: Most Recent Vital Signs Temp Pulse Resp BP Pulse Ox 36.5 C 54 L 16 133/65 99 07/09/23 09:37 07/09/23 09:37 07/09/23 09:37 07/09/23 09:37 07/09/23 09:37 Please see 0850 VS as set for Postop evaluation. Pain Score Most Recent Pain Score: Most Recent Pain Score Pain Level 0 07/09/23 09:37 Assessment Mental Status: Awake (Alert & Oriented to Patient Baseline) Airway and Respiratory Function: Patent airway with normal (patient baseline) respiratory exam Cardiovascular Function: Hemodynamically Stable Hydration Status: Adequately Hydrated Nausea & Vomiting: No Nausea or Vomiting Pain: Pt. Denies Any Pain Peripheral Nerve Block: Patient did not receive a nerve block
== END 2023-07-09 09:58 | disposition home or self-care (01) ==
LOC: SUR 06:48
PROVIDERS: PCP Family Medicine; Visit Provider Surgery
PROC: 0DJD8ZZ Inspection of Lower Intestinal Tract, Via Natural or Artificial Opening Endoscopic (ICD-10-PCS; CPT 45378; principal; 2023-07-09 08:15)
DX: Z12.11 Encounter for screening for malignant neoplasm of colon (principal); K52.9 Noninfective gastroenteritis and colitis, unspecified; D12.0 Benign neoplasm of cecum; K57.30 Diverticulosis of large intestine without perforation or abscess without bleeding; D12.4 Benign neoplasm of descending colon
CPT/HCPCS: 45385; 45380; 88305; J2001; J2704

== ENCOUNTER → 2023-08-13 02:39 | Outpatient (CLI) | payer MEDICARE, SELFPAY ==
--- NOTE | 2023-08-13 08:15 | DI.CT_ITS ---
Exam(s) CT ABDOMEN PELVIS W EXAM: CT ABDOMEN PELVIS W CLINICAL HISTORY: F/U THROMBOSIS OF OVARIAN VEIN,i82.890,? ACUTE VS CHRONIC TECHNIQUE: Imaging Protocol: Axial computed tomography images with coronal and sagittal reformatted images were created and reviewed. CONTRAST MATERIAL: Intravenous: Omnipaque 350 Contrast volume:100 mL Oral: No COMPARISON: CT CT ABDOMEN PELVIS W from 06/09/2023 FINDINGS: ABDOMEN: Lung Bases: There is a small hiatal hernia. There is scarring or atelectasis in the lung bases. Liver: Normal density. No measurable mass. Portal, Superior Mesenteric, and Splenic Veins: Unremarkable. Gallbladder and Biliary Tract: No radiodense calculus or dilation. Pancreas: Normal density, no abnormal calcifications or inflammatory process. Spleen: Normal. Adrenals: No masses seen. Kidneys: Normal size, contour and axis. No radiodense stones or obstructive uropathy. No masses seen. Abdominal Aorta: Abdominal portion non-dilated. Atherosclerosis. Bowel: There is diverticulosis of the colon but no evidence of acute diverticulitis. There is a mode rate amount of stool throughout the colon suggesting constipation. The stomach is incompletely diste nded limiting evaluation. Appendix is unremarkable. There is no evidence of obstruction or bowel wal l thickening. Peritoneal Cavity: No ascites, collection or mesenteric inflammatory response. No free air. Lymph Nodes: Within normal limits. Bones: Within normal limits for the patient's age. Soft Tissues: Unremarkable. PELVIS: Bladder: Symmetric distention, no gross wall thickening. Reproductive Organs: Status post hysterectomy. There has been no change in appearance of the bilater al ovarian vein thrombosis. Lymph Nodes: Within normal limits. Bones: Within normal limits for the patient's age. IMPRESSION: 1. 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 2. No acute abdominal pelvic process. RADIATION DOSE DELIVERED: 1,136.51mGy.cm Total DLP DATA REPOSITORY: All CT scans at this facility are submitted to the National Radiology Data Registry (NRDR) Dose Index Registry (DIR) with the [employer] ([employer]). RADIATION OPTIMIZATION: All CT scans at this facility use at least one of these dose optimization te chniques: automated exposure control; mA and/or kV adjustment per patient size (includes targeted exa ms where dose is matched to clinical indication); or iterative reconstruction.
[2023-08-13 12:18] LABS: CREATININE 1.2 mg/dL (0.55-1.02); Estimated GFR 46.91 (mL/min/1.73m2)
[2023-08-13] MEDS: Omnipaque 350 MG/ML 100 ML BTL IJ (13:47)
[2023-08-13] MEDS: Normal Saline - Diluent 50 ML VIAL IJ (13:48)
== END ==
PROVIDERS: Obstetrics & Gynecology; PCP Family Medicine; Visit Provider Obstetrics & Gynecology Gynecology
DX: I82.890 Acute embolism and thrombosis of other specified veins
CPT/HCPCS: 74177; 82565; J3490

== ENCOUNTER 2023-12-26 15:24 | Outpatient (REF) | payer MEDICARE, SELFPAY ==
[2023-12-26 15:33] LABS: Abs Immature Grans 0.01 10^3/uL (0.0-0.06); Absolute Basophil Count 0.05 10^3/uL (0.0-0.2); Absolute Eosinophil Count 0.32 10^3/uL (0.0-0.7); Absolute Lymphocyte Count 2.09 10^3/uL (1.2-3.4); Absolute Monocyte Count 0.56 10^3/uL (0.1-0.8); Absolute Neutrophil Count 3.14 10^3/uL (1.2-6.7); Basophils % 0.8 %; Eosinophils % 5.2 %; HCT 37.4 % (36.0-46.0); HGB 12.8 g/dL (11.2-15.7); Immature Grans % 0.2 %; Lymphocytes % 33.9 %; MCH 30.8 pg (27.0-33.0); MCHC 34.2 % (32.0-36.0); MCV 90 fL (80-95); MPV 10.9 fL (8.0-11.0); Monocytes % 9.1 %; Neutrophils % 50.8 %; Platelet Count 223 10^3/uL (130-400); RBC 4.15 10^6/uL (3.93-5.22); RDW 13.2 % (11.7-14.6); RDW-SD 44.1 fL; WBC 6.17 10^3/uL (4.4-10.8)
[2023-12-26 16:02] LABS: ALT 29 U/L (14-59); AST 24 U/L (15-37); Albumin 3.8 g/dL (3.4-5.0); Alkaline Phosphatase 60 U/L (46-116); Anion Gap 7.1 mmol/L (3-11); BUN 18 mg/dL (7-18); Bilirubin, Total 0.76 mg/dL (0.2-1.0); CO2 27.9 mmol/L (21.0-32.0); Calcium 8.5 mg/dL (8.5-10.1); Chloride 105 mmol/L (98-107); Estimated GFR 58.39 (mL/min/1.73m2); Glucose 95 mg/dL (74-106); Sodium 140 mmol/L (136-145); Total Protein 7.4 g/dL (6.4-8.2)
== END 2023-12-26 15:25 | disposition home or self-care (01) ==
LOC: NCHCN 15:24
PROVIDERS: PCP Family Medicine; Visit Provider Family Medicine
DX: I10 Essential (primary) hypertension (principal)
CPT/HCPCS: 80053; 85025

== ENCOUNTER 2024-08-11 01:29 | Outpatient (CLI) | payer MEDICARE, SELFPAY ==
--- NOTE | 2024-08-11 07:00 | DI.CT_ITS ---
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 CONTRAST MATERIAL: Intravenous: Omnipaque 350 Contrast volume:75 mL Oral: Yes COMPARISON: CT CT ABDOMEN PELVIS W from 06/09/[address] ABDOMEN PELVIS W from 08/13/2023 FINDINGS: ABDOMEN: Lung Bases: There is moderate size hiatal hernia. There is a stable left lower lobe pulmonary nodule and right lower lobe parenchymal scarring. Liver: Normal density. No measurable mass. Portal, Superior Mesenteric, and Splenic Veins: Unremarkable. Gallbladder and Biliary Tract: No radiodense calculus or dilation. Pancreas: Normal density, no abnormal calcifications or inflammatory process. Spleen: Normal. Adrenals: No masses seen. Kidneys: Normal size, contour and axis. No radiodense stones or obstructive uropathy. No masses seen. Abdominal Aorta: Abdominal portion non-dilated. Atherosclerotic calcification is present. Bowel: There is diverticulosis of the colon without evidence of acute diverticulitis. No suspicious bowel wall thickening or obstruction is present. Appendix is unremarkable. Peritoneal Cavity: No ascites, collection or mesenteric inflammatory response. No free air. Lymph Nodes: Within normal limits. Bones: Within normal limits for the patient's age. Soft Tissues: Unremarkable. PELVIS: Bladder: Symmetric distention, no gross wall thickening. Reproductive Organs: Status post hysterectomy. There remains poor enhancement of the right ovarian v ein and the distal left ovarian vein. This is unchanged compared to the prior examination. Lymph Nodes: Within normal limits. Bones: Within normal limits for the patient's age. IMPRESSION: 1. No acute abdominal or pelvic process. 2. Stable appearance of the ovarian veins compared to the prior examination. RADIATION DOSE DELIVERED: 567.05mGy.cm Total DLP DATA REPOSITORY: All CT scans at this facility are submitted to the National Radiology Data Registry (NRDR) Dose Index Registry (DIR) with the [employer] (ACR). RADIATION OPTIMIZATION: All CT scans at this facility use at least one of these dose optimization te chniques: automated exposure control; mA and/or kV adjustment per patient size (includes targeted exa ms where dose is matched to clinical indication); or iterative reconstruction.
[2024-08-11] MEDS: Barium Sulfate 2% W/V-Creamy Vanilla Smoothie 450 ML BTL PO ×2 (09:44→09:45)
[2024-08-11 10:12] LABS: CREATININE 1.2 mg/dL (0.55-1.02); Estimated GFR 46.62 (mL/min/1.73m2)
[2024-08-11] MEDS: Normal Saline - Diluent 50 ML VIAL IJ (11:38)
[2024-08-11] MEDS: Omnipaque 350 MG/ML 100 ML BTL 75 ML IJ (11:38)
--- NOTE | 2024-09-11 09:37 | NUR.NOTE ---
Nursing Note: I received a call from another providers office in an attempt to verify who the primary care provider was for this patient. It was not listed on the referral made so they called us. I let them know that it is listed as Wesley Ward from [facility] but was not able to ensure that this is who she sees and that they would have to call their office. I gave them the number to [facility].
== END 2024-08-11 01:49 ==
PROVIDERS: Obstetrics & Gynecology Gynecology; PCP Family Medicine; Visit Provider Nurse Practitioner
DX: Z01.818 Encounter for other preprocedural examination (principal); I82.890 Acute embolism and thrombosis of other specified veins
CPT/HCPCS: 74177; 82565; J3490

== ENCOUNTER 2024-11-01 19:03 | Inpatient (IN) | payer MEDICARE, SELFPAY ==
[2024-11-01] VITALS (25 sets, daily range): BP systolic 135–197; BP diastolic 74–99; PULSE 57–91; RESP 9–28; TEMP 36.5–37.1; O2SAT 95–98
--- NOTE | 2024-11-01 19:00 | RT.EKG_ITS ---
APPROVED REPORT Exam: Resting ECG Reason for Exam: SoB Patient Location: E HR:66 bpm ECG Measurements Heart Rate 66 AXIS WV 164 P 58 QRSd 114 QRS -19 QT 434 T 107 QTc 458 Conclusion Sinus rhythm [address] depression no stemi
--- NOTE | 2024-11-01 19:45 | DI.RAD_ITS ---
Exam(s) XR CHEST 2V PA LATERAL EXAM: XR CHEST 2V PA LATERAL CLINICAL HISTORY: cough. TECHNIQUE: 2D digital imaging was performed. COMPARISON: No exams were available for comparison FINDINGS: 2 views: Heart size is normal. The mediastinum is not widened. Lungs are clear. No infiltrates nor pleural effusions. IMPRESSION: No acute pulmonary findings. DATA REPOSITORY: RADIATION DOSE DELIVERED:
[2024-11-01 20:01] LABS: Abs Immature Grans 0.02 10^3/uL (0.0-0.06); Absolute Basophil Count 0.06 10^3/uL (0.0-0.2); Absolute Eosinophil Count 0.38 10^3/uL (0.0-0.7); Absolute Monocyte Count 0.66 10^3/uL (0.1-0.8); Absolute Neutrophil Count 4.78 10^3/uL (1.2-6.7); Basophils % 0.7 %; Eosinophils % 4.6 %; HCT 39.9 % (36.0-46.0); HGB 14.1 g/dL (11.2-15.7); Immature Grans % 0.2 %; MCHC 35.3 % (32.0-36.0); MCV 88 fL (80-95); Neutrophils % 58.5 %; Platelet Count 231 10^3/uL (130-400); RBC 4.55 10^6/uL (3.93-5.22); RDW 13.1 % (11.7-14.6); RDW-SD 41.3 fL
[2024-11-01 20:24] LABS: NT-proBNP 141 pg/mL (<300)
[2024-11-01 20:26] LABS: Troponin I 52 ng/L (<or=51)
[2024-11-01 20:36] LABS: ALT 30 U/L (14-59); AST 25 U/L (15-37); Alkaline Phosphatase 68 U/L (46-116); Anion Gap 7.3 mmol/L (3-11); BUN 17 mg/dL (7-18); Bilirubin, Total 0.8 mg/dL (0.2-1.0); CO2 27.7 mmol/L (21.0-32.0); CREATININE 1.1 mg/dL (0.55-1.02); Calcium 8.9 mg/dL (8.5-10.1); Chloride 103 mmol/L (98-107); Estimated GFR 51.75 (mL/min/1.73m2); Glucose 118 mg/dL (74-106); Magnesium 1.6 mg/dL (1.8-2.4); Sodium 138 mmol/L (136-145); Total Protein 8.2 g/dL (6.4-8.2)
[2024-11-01] MEDS: Potassium Chloride Liquid 20 MEQ PKT 40 MEQ PO (21:00)
[2024-11-01] MEDS: Magnesium Oxide 400 MG TAB 800 MG PO (21:00)
--- NOTE | 2024-11-01 21:00 | RT.EKG_ITS ---
APPROVED REPORT Exam: Resting ECG Reason for Exam: SOB Patient Location: E HR:66 bpm ECG Measurements Heart Rate 66 AXIS WY 158 P 61 QRSd 108 QRS -30 QT 431 T 31 QTc 451 Conclusion Sinus rhythm. 66 normal axis no change from prior
[2024-11-01 21:02] LABS: Troponin I 305 ng/L (<or=51)
[2024-11-01] MEDS: Aspirin 325 MG TAB PO (21:06)
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
--- NOTE | 2024-11-01 21:37 | DI.VRAD_ITS ---
PROCEDURE INFORMATION: Exam: XR Chest Exam date and time: 11/01/2024 8:15 PM Age: 79 years old Clinical indication: Cough TECHNIQUE: Imaging protocol: Radiologic exam of the chest. Views: 2 views. COMPARISON: CT ABDOMEN PELVIS W 08/11/2024 11:29 AM FINDINGS: Lungs: No pulmonary consolidation is seen. Pleural spaces: No pleural effusion or pneumothorax is demonstrated. Heart/Mediastinum: The heart appears normal in size. Bones/joints: The visualized bony structures appear grossly intact, as seen. IMPRESSION: No active disease is seen in the chest. Dictated and Authenticated by: Zac Styles MD. Orderin Mik Sousa MD
[2024-11-01 21:59] LABS: Troponin I 726 ng/L (<or=51)
[2024-11-01] MEDS: Heparin in 0.45% NaCl 25,000 UNIT/250 ML BAG 7 UNIT IVINF (22:09)
[2024-11-01] MEDS: Clopidogrel 300 MG TAB 600 MG PO (22:10)
[2024-11-01 22:15] LABS: PTT Activated 26.6 sec (20.6-30.2); Prothrombin Time 9.9 sec (9.1-11.1)
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
[2024-11-01] MEDS: Ondansetron 4 MG/2 ML VIAL (23:06)
[2024-11-02] VITALS (25 sets, daily range): BP systolic 106–160; BP diastolic 57–78; PULSE 53–78; RESP 12–26; TEMP 37.8; O2SAT 94–99
[2024-11-02] MEDS: Simvastatin 10 MG TAB PO (01:00)
[2024-11-02] MEDS: Normal Saline Flush 10 ML SYR IVP ×2 (01:01→08:40)
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
[2024-11-02 05:09] LABS: PTT Activated 52.8 sec (20.6-30.2)
[2024-11-02] MEDS: Aspirin E.C. 81 MG TABEC PO (08:40)
[2024-11-02] MEDS: Triamterene 37.5/HCTZ 25 CAP PO (08:40)
[2024-11-02] MEDS: Clopidogrel 75 MG TAB PO (08:40)
[2024-11-02 08:55] LABS: Anion Gap 8.7 mmol/L (3-11); BUN 16 mg/dL (7-18); CO2 23.3 mmol/L (21.0-32.0); CREATININE 1.1 mg/dL (0.55-1.02); Calcium 8.8 mg/dL (8.5-10.1); Chloride 106 mmol/L (98-107); Estimated GFR 51.75 (mL/min/1.73m2); Glucose 129 mg/dL (74-106); Magnesium 1.9 mg/dL (1.8-2.4); Potassium 3.6 mmol/L (3.5-5.1); Sodium 138 mmol/L (136-145)
[2024-11-02 08:57] LABS: Troponin I 2690 ng/L (<or=51)
--- NOTE | 2024-11-02 09:00 | RT.EKG_ITS ---
APPROVED REPORT Exam: Resting ECG Reason for Exam: NSTEMI, follow up Patient Location: I HR:59 bpm ECG Measurements Heart Rate 59 AXIS AK 166 P 44 QRSd 104 QRS -33 QT 487 T -6 QTc 483 Conclusion Sinus rhythm...normal P axis, V-rate 50- 99 , late transition...QRS area<0 in V5/V6 Left ventricular hypertrophy...multiple LVH criteria Borderline T abnormalities, inferior leads...T flat/neg, II III aVF Baseline wander in lead(s) V1
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
[2024-11-02 10:57] LABS: PTT Activated 51.2 sec (20.6-30.2)
[2024-11-02] MEDS: Atorvastatin 40 MG TAB 80 MG PO (12:04)
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
[2024-11-02] MEDS: Losartan 50 MG TAB 100 MG PO (17:03)
[2024-11-02 19:28] LABS: Hemoglobin A1C 5.8 % (<5.7)
[2024-11-13 08:56] LABS: Misc Referral (UVM) See Comments
== END 2024-11-02 18:35 | disposition short-term general hospital (02) | DRG 282 ==
LOC: ER 23:50 → ICU 23:54
PROVIDERS: Admitting Provider Family Medicine; Emergency Provider Emergency Medicine; PCP Family Medicine; Responsible Provider Family Medicine; Visit Provider Family Medicine
DX: I21.4 Non-ST elevation (NSTEMI) myocardial infarction (principal); I10 Essential (primary) hypertension; R05.3 Chronic cough; E78.5 Hyperlipidemia, unspecified; R06.02 Shortness of breath; Z79.899 Other long term (current) drug therapy; R73.03 Prediabetes
CPT/HCPCS: 00123; 80048; 80053; 80061; 93005; 96365; 96366; 96375; 99291; 71046; 83036; 83735; 83880; 84484; 85025; 85610; 85730; 93010; 99223; 99239; J0360; J1644; J2405

== ENCOUNTER 2024-11-13 15:05 | Outpatient (REF) | payer MEDICARE, SELFPAY ==
[2024-11-13 14:28] LABS: HGB 12.5 g/dL (11.2-15.7); MCH 30.4 pg (27.0-33.0); MCHC 33.8 % (32.0-36.0); MCV 90 fL (80-95); MPV 10.7 fL (8.0-11.0); Platelet Count 226 10^3/uL (130-400); RBC 4.11 10^6/uL (3.93-5.22); RDW 12.6 % (11.7-14.6); RDW-SD 41.8 fL; WBC 5.58 10^3/uL (4.4-10.8)
[2024-11-13 14:40] LABS: Anion Gap 7.7 mmol/L (3-11); BUN 12 mg/dL (7-18); CO2 26.3 mmol/L (21.0-32.0); Calcium 8.6 mg/dL (8.5-10.1); Chloride 105 mmol/L (98-107); Estimated GFR 58.02 (mL/min/1.73m2); Glucose 103 mg/dL (74-106); Potassium 3.5 mmol/L (3.5-5.1); Sodium 139 mmol/L (136-145)
== END 2024-11-13 15:06 | disposition home or self-care (01) ==
LOC: NCHCN 15:05
PROVIDERS: PCP Family Medicine; Visit Provider Family Medicine
DX: I21.4 Non-ST elevation (NSTEMI) myocardial infarction (principal)
CPT/HCPCS: 80048; 85027

== ENCOUNTER 2024-12-11 08:59 | Outpatient (CLI) | payer MEDICARE, SELFPAY ==
--- NOTE | 2024-12-11 08:45 | RT.EKG_ITS ---
APPROVED REPORT Exam: Resting ECG Reason for Exam: CAD Patient Location: O HR:58 bpm ECG Measurements Heart Rate 58 AXIS MA 163 P 45 QRSd 99 QRS -29 QT 457 T 5 QTc 449 Conclusion Sinus rhythm...normal P axis, V-rate 50- 99 Normal Electrocardiogram
== END 2024-12-11 09:00 | disposition home or self-care (01) ==
LOC: DI.CARD 09:03
PROVIDERS: PCP Family Medicine; Visit Provider Internal Medicine Cardiovascular Disease
DX: I21.4 Non-ST elevation (NSTEMI) myocardial infarction (principal); I25.10 Atherosclerotic heart disease of native coronary artery without angina pectoris
CPT/HCPCS: 93010

== ENCOUNTER → 2024-12-11 13:29 | Outpatient (BNVA) | payer MEDICARE, SELFPAY | PROVIDERS: PCP Family Medicine; Referring Provider Family Medicine; Visit Provider Internal Medicine Cardiovascular Disease | DX: I21.4 Non-ST elevation (NSTEMI) myocardial infarction (principal); I10 Essential (primary) hypertension | CPT/HCPCS: 99214; 93005 ==

== ENCOUNTER 2025-01-27 16:31 | Outpatient (REF) | payer MEDICARE, SELFPAY ==
[2025-01-27 15:43] LABS: Abs Immature Grans 0.02 10^3/uL (0.0-0.06); HCT 36.8 % (36.0-46.0); HGB 12.5 g/dL (11.2-15.7); Immature Grans % 0.3 %; MCH 30.1 pg (27.0-33.0); MCHC 34.0 % (32.0-36.0); MCV 89 fL (80-95); MPV 11.4 fL (8.0-11.0); Platelet Count 196 10^3/uL (130-400); RBC 4.15 10^6/uL (3.93-5.22); RDW 13.3 % (11.7-14.6); RDW-SD 43.5 fL; WBC 6.93 10^3/uL (4.4-10.8)
[2025-01-27 16:00] LABS: ALT 46 U/L (14-59); AST 35 U/L (15-37); Albumin 3.7 g/dL (3.4-5.0); Alkaline Phosphatase 68 U/L (46-116); Anion Gap 7.1 mmol/L (3-11); BUN 17 mg/dL (7-18); Bilirubin, Total 1.1 mg/dL (0.2-1.0); CO2 30.9 mmol/L (21.0-32.0); Calcium 9.0 mg/dL (8.5-10.1); Calculated LDL 79 mg/dL (<100); Chloride 107 mmol/L (98-107); Cholesterol 142 mg/dL (<200); Estimated GFR 65.84 (mL/min/1.73m2); Glucose 102 mg/dL (74-106); HDL Cholesterol 46 mg/dL (>or=50); Potassium 3.8 mmol/L (3.5-5.1); Sodium 145 mmol/L (136-145); Total Protein 7.0 g/dL (6.4-8.2); Triglyceride 87 mg/dL (<150)
== END 2025-01-27 16:32 | disposition home or self-care (01) ==
LOC: NCHCN 16:31
PROVIDERS: PCP Family Medicine; Visit Provider Family Medicine
DX: I10 Essential (primary) hypertension (principal)
CPT/HCPCS: 80053; 80061; 85025

== ENCOUNTER 2025-05-18 16:06 | Outpatient (REF) | payer MEDICARE, SELFPAY ==
[2025-05-18 21:22] LABS: Glucose Negative (Negative)
[2025-05-18 21:30] LABS: C & S Indicated? No; RBC Negative HPF (0-2)
[2025-05-23 10:11] LABS: HSV 1 PCR Negative (Negative); HSV 2 PCR Negative (Negative)
== END 2025-05-18 16:07 | disposition home or self-care (01) ==
LOC: NCHCN 16:06
PROVIDERS: PCP Family Medicine; Visit Provider Internal Medicine
DX: R39.9 Unspecified symptoms and signs involving the genitourinary system (principal); N89.8 Other specified noninflammatory disorders of vagina
CPT/HCPCS: 87529; 81003; 81015